=== PATIENT | male | born 1945 | race African-American/Black ===

== ENCOUNTER 2017-11-24 09:46 | Observation (INO) ==
[2017-11-24 10:58] LABS: Basophils % 0.5 % (0.0-0.8); Eosinophils % 0.3 % (0.00-10.9); Hematocrit 41.3 VOL% (42.0-52.0); Hemoglobin 13.5 GM/DL (14.0-18.0); Immature Granulocytes % 0.4 %; Immature Granulocytes Absolute 0.03 #; Lymphocytes # 0.8 10*3/uL (1.4-4.0); Lymphocytes % 10.7 % (21.2-54.2); Mean Corpuscular HGB Conc 32.7 GM/DL (32-36); Mean Corpuscular Hemoglobin 28 PG (27-34); Mean Corpuscular Volume 85.9 FL (87-102); Mean Platelet Volume 9.1 FL (9.6-12.0); Monocytes # 0.6 10*3/uL (0.11-0.8); Monocytes % 8.1 % (1.7-12.7); Platelet Count 203 T/CUMM (130-400); Red Blood Count 4.81 MC/CUMM (3.8-5.5); Red Cell Distribution Width 14.6 % (9.3-17.3); White Blood Count 7.5 T/CUMM (4-12)
[2017-11-24 11:06] LABS: PT Patient Result 10.3 SECS; Partial Thromboplastin Time 23.8 SECS (0-40)
[2017-11-24 11:25] LABS: Alanine Aminotransferase 24 U/L (16-61); Albumin 3.9 G/DL (3.4-5.0); Alkaline Phosphatase 74 U/L (45-117); Aspartate Amino Transferase 25 U/L (0-37); Blood Urea Nitrogen 15 MG/DL (7-18); Glucose 83 MG/DL (74-106); Osmolality,Calculated 278.4 MOS/KG (273-304); Potassium 3.4 MMOL/L (3.5-5.1); Sodium 140 MMOL/L (136-145); Total Protein 8.2 G/DL (6.4-8.3)
[2017-11-24 12:28] LABS: Apearance,Urine CLEAR (Clear); Bilirubin,Urine Negative (Negative); Blood, Urine Negative (Negative); Glucose,Urine (UA) Negative (Negative); Ketones,Urine Negative (Negative); Mucus,Urine Occasional /LPF (Occasional); Nitrite,Urine Negative (Negative); Protein,Urine Negative; Urine Color Yellow (Yellow); Urine Specific Gravity 1.009 (1.001-1.035)
[2017-11-24] MEDS ORDERED: ACETAMINOPHEN 325 MG TABLET PO PRN (14:20)
[2017-11-24] MEDS ORDERED: ONDANSETRON 4 MG/2 ML VIAL IV PRN (14:20)
[2017-11-24] MEDS ORDERED: traZODone 50 MG TABLET PO PRN (15:34)
[2017-11-24] MEDS: busPIRone 10 MG TABLET PO SCH (20:39)
[2017-11-25 06:10] LABS: Calcium 8.7 MG/DL (8.5-10.1); Osmolality,Calculated 281.3 MOS/KG (273-304); Potassium 3.6 MMOL/L (3.5-5.1)
[2017-11-25] MEDS ORDERED: hydroCHLOROthiazide 25 MG TABLET PO SCH (09:00)
[2017-11-25] MEDS ORDERED: LOVASTATIN 20 MG TABLET PO SCH ×2 (09:00→21:00)
[2017-11-25] MEDS: TAMSULOSIN 0.4 MG CAPSULE PO SCH (09:17)
[2017-11-25] MEDS: DILTIAZEM CD 300 MG CAPSULE PO SCH (09:17)
[2017-11-25] MEDS ORDERED: POTASSIUM CHLORIDE 20 MEQ TABLET PO ONE (16:15)
[2017-11-25] MEDS: CLOPIDOGREL 75 MG TABLET PO SCH (16:36)
[2017-11-25] MEDS: ASPIRIN EC 325 MG TABLET PO SCH (16:36)
[2017-11-25 18:35] LABS: Barbiturates Screen,Urine Negative (Negative); Benzodiazepines Screen,Urine Negative (Negative); Cannabinoid Screen,Urine Negative (Negative); Opiate Screen,Urine Negative (Negative); Phencyclidine Screen,Urine Negative (Negative)
[2017-11-25] MEDS: busPIRone 10 MG TABLET PO SCH (20:28)
[2017-11-25] MEDS: ASCORBIC ACID 500 MG TABLET PO SCH (20:28)
[2017-11-26 05:52] LABS: Calcium 8.6 MG/DL (8.5-10.1); Osmolality,Calculated 282.3 MOS/KG (273-304); Potassium 3.7 MMOL/L (3.5-5.1)
[2017-11-26 08:05] VITALS: BP 177/83
[2017-11-26] MEDS ORDERED: levETIRAcetam 500 MG TABLET PO SCH (09:30)
[2017-11-26] MEDS: ASPIRIN EC 325 MG TABLET PO SCH (09:48)
[2017-11-26] MEDS: ASCORBIC ACID 500 MG TABLET PO SCH (09:49)
[2017-11-26] MEDS: TAMSULOSIN 0.4 MG CAPSULE PO SCH (09:49)
[2017-11-26] MEDS: DILTIAZEM CD 300 MG CAPSULE PO SCH (09:53)
[2017-11-26] MEDS: CLOPIDOGREL 75 MG TABLET PO SCH (10:19)
== END 2017-11-26 13:12 | disposition home or self-care (01) ==
LOC: N.EDINP 09:46 → N.ED 09:46 → N.4E 14:08
PROVIDERS: ADMIT Family Medicine; ATTEND Family Medicine